=== PATIENT | female | born 1945 | race Caucasian/White ===

== ENCOUNTER 2019-11-17 15:19 | Emergency (ER) | payer MEDICARE ==
[2019-11-17] MEDS ORDERED: Alum Hydrox/Mag Hydrox/Simeth 15 ML, Lidocaine 2% 15 ML PO ONE ×2 (16:01)
--- NOTE | 2019-11-17 16:07 | EDM.PDOC ---
ED HPI GENERAL MEDICAL PROBLEM - General Chief Complaint: Chest Pain Stated Complaint: CHEST PAIN, SOB Time Seen by Provider: 11/17/19 15:50 Source of Information: Reports: Patient, RN History Limitations: Reports: Other (no old records) - History of Present Illness INITIAL COMMENTS - FREE TEXT/NARRATIVE: 74 yo female here with epigastric pain that began while walking around a local business. Is visiting her brother from [place], [place]. Has no SOB, nausea or diaphoresis. Has a pHx of Mir's esophagus. No melena or hematochezia. No vomiting. Ate bread and tomato soup for lunch. Has already had her gallbladder out. Swallowing does not change her sx's. 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 (see below) (none) Chest Pain Score (Numeric/FACES): 6 - Related Data Allergies Allergy/AdvReac Type Severity Reaction Status Date / Time clindamycin Allergy Rash Verified 11/17/19 15:40 Penicillins Allergy Other Verified 11/17/19 15:40 Home Meds: Home Meds Cyclobenzaprine [Flexeril] 0.5 tab PO BEDTIME 11/17/19 [History] Famotidine 1 tab PO BEDTIME 11/17/19 [History] Ferrous Sulfate 1 tab PO TID 11/17/19 [History] Omeprazole 1 tab PO DAILY 11/17/19 [History] Ranitidine HCl [Ranitidine] 1 tab PO BID 11/17/19 [History] Sucralfate [Carafate] 1 dose PO QID 11/17/19 [History] amLODIPine [Norvasc] 1 tab PO DAILY 11/17/19 [History] ondansetron HCL [Ondansetron HCl] 1 tab PO TID PRN 11/17/19 [History] oxyCODONE HCl/Acetaminophen [Oxycodone-Acetaminophen 5-325] 1 - 2 tab PO Q6HR PRN 11/17/19 [History] Social & Family History - Tobacco Use Smoking Status *Q: Never Smoker - Caffeine Use Caffeine Use: Reports: Coffee - Recreational Drug Use Recreational Drug Use: No ED ROS GENERAL - Review of Systems Review Of Systems: See Below Constitutional: Reports: No Symptoms HEENT: Reports: No Symptoms Respiratory: Reports: No Symptoms Cardiovascular: Reports: No Symptoms GI/Abdominal: Reports: Abdominal Pain (upper). Denies: Black Stool, Bloody Stool, Constipation, Diarrhea, Decreased Appetite, Distension, Flatus, Hematemesis, Melena, Nausea, Vomiting : Reports: No Symptoms Musculoskeletal: Reports: No Symptoms Skin: Reports: No Symptoms Neurological: Reports: No Symptoms Psychiatric: Reports: No Symptoms ED EXAM, GI/ABD - Physical Exam Exam: See Below Exam Limited By: No Limitations General Appearance: Alert, WD/WN, No Apparent Distress, Obese Eyes: Bilateral: Normal Appearance Ears: Normal External Exam, Normal Canal, Hearing Grossly Normal Nose: Normal Inspection, No Blood Throat/Mouth: Normal Inspection, Normal Lips, Normal Oropharynx, Normal Voice, No Airway Compromise Head: Atraumatic, Normocephalic Neck: Normal Inspection Respiratory/Chest: No Respiratory Distress, Lungs Clear, Normal Breath Sounds, No Accessory Muscle Use Cardiovascular: Regular Rate, Rhythm, No Edema GI/Abdominal Exam: Normal Bowel Sounds, Soft, No Distention, Tender ( epigastrium only). No: Non-Tender, Distended, Guarding, Rigid, Rebound Back Exam: Normal Inspection. No: CVA Tenderness (R), CVA Tenderness (L) Extremities: Normal Inspection, Normal Range of Motion, Non-Tender, No Pedal Edema Neurological: Alert, Oriented, CN II-XII Intact, Normal Cognition, No Motor/ Sensory Deficits Psychiatric: Normal Affect, Normal Mood Skin Exam: Warm, Dry, Intact, Normal Color, No Rash EKG INTERPRETATION EKG Date: 11/17/19 Time: 15:30 Rhythm: NSR Rate (Beats/Min): 73 [place]: Normal P-Wave: Present QRS: Normal ST-T: Normal QT: Normal Comparison: NA - No Prior EKG Course - Vital Signs Last Recorded V/S: Last Vital Signs Temp 36.0 C L 11/17/19 15:40 Pulse 68 11/17/19 16:38 Resp 16 11/17/19 16:38 BP 165/84 H 11/17/19 16:38 Pulse Ox 99 11/17/19 16:38 - Orders/Labs/Meds Orders: Active Orders 24 hr Category Date Time Status Cardiac Monitoring [RC] .As Directed Care 11/17/19 15:35 Active EKG Documentation Completion [RC] ASDIRECTED Care 11/17/19 15:35 Active EKG 12 Lead [EK] Routine Ther 11/17/19 15:35 Ordered Labs: Laboratory Tests 11/17/19 11/17/19 Range/Units 16:22 16:22 WBC 6.5 (4.5-11.0) K/uL RBC 4.60 (3.30-5.50) M/uL Hgb 11.1 L (12.0-15.0) g/dL Hct 37.5 (36.0-48.0) % MCV 82 (80-98) fL MCH 24 L (27-31) pg MCHC 30 L (32-36) % Plt Count 269 (150-400) K/uL Troponin I < 0.017 (0.000-0.056) ng/mL Lipase 273 (73-393) U/L Meds: Medications Discontinued Medications Generic Name Dose Route Start Last Admin Trade Name Freq PRN Reason Stop Dose Admin Al Hydroxide/Mg Hydroxide 15 0 ml 11/17/19 16:01 11/17/19 16:08 ml/ Lidocaine HCl 15 ml PO 11/17/19 16:02 30 ml ONETIME ONE Administration Ondansetron HCl 4 mg 11/17/19 16:19 11/17/19 16:38 Zofran Odt PO 11/17/19 16:20 4 mg ONETIME ONE Administration Oxycodone/Acetaminophen 1 tab 11/17/19 16:19 11/17/19 16:37 Percocet 325-5 Mg PO 11/17/19 16:20 1 tab ONETIME STA Administration - Re-Assessments/Exams Free Text/Narrative Re-Assessment/Exam: 11/17/19 17:02 Feeling better after Percocet x 1 and Zofran. Departure - Departure Time of Disposition: 17:02 Disposition: Home, Self-Care 01 Condition: Fair Clinical Impression: Gastritis Qualifiers: Gastritis type: unspecified gastritis Chronicity: acute Gastritis bleeding: without bleeding Qualified Code(s): K29.00 - Acute gastritis without bleeding - Discharge Information *PRESCRIPTION DRUG MONITORING PROGRAM REVIEWED*: No *COPY OF PRESCRIPTION DRUG MONITORING REPORT IN PATIENT [place]: No Referrals: PCP,None [Primary Care Provider] - Forms: ED Department Discharge Additional Instructions: Continue your current medications. Use Zofran as needed for nausea control. Use Percocet as needed for pain control. Recheck as needed. Sepsis Event Note - Focused Exam Vital Signs: Vital Signs Temp Pulse Resp BP Pulse Ox 11/17/19 16:38 68 16 165/84 H 99 11/17/19 16:13 68 18 159/60 H 98 11/17/19 15:40 36.0 C L 82 18 157/64 H 96 Date Exam was Performed: 11/17/19 Time Exam was Performed: 17:01 - My Orders Last 24 Hours: My Active Orders 11/17/19 15:35 Cardiac Monitoring [RC] .As Directed EKG Documentation Completion [RC] ASDIRECTED EKG 12 Lead [EK] Routine - Assessment/Plan Last 24 Hours: My Active Orders 11/17/19 15:35 Cardiac Monitoring [RC] .As Directed EKG Documentation Completion [RC] ASDIRECTED EKG 12 Lead [EK] Routine
[2019-11-17] MEDS ORDERED: Ondansetron 4 MG Tab.DIS PO ONE (16:19)
[2019-11-17] MEDS ORDERED: Acetaminophen/oxyCODONE 325-5 MG Tab PO STA (16:19)
== END 2019-11-17 17:44 | disposition home or self-care (01) ==
LOC: JP.ED 15:19
DX: K29.00 Acute gastritis without bleeding (principal); Z88.1 Allergy status to other antibiotic agents; Z88.0 Allergy status to penicillin; Z79.899 Other long term (current) drug therapy
CPT/HCPCS: 36415; 83690; 84484; 85027; 93005; 99284; A9270; 93010

== ENCOUNTER 2021-01-22 12:54 | Emergency (ER) | payer MEDICARE ==
--- NOTE | 2021-01-22 13:39 | EDM.PDOC ---
ED HPI GENERAL MEDICAL PROBLEM - General Chief Complaint: Allergic Reaction Stated Complaint: BEE STING, ALLERGIC Time Seen by Provider: 01/22/21 13:25 Source of Information: Reports: Patient, RN History Limitations: Reports: No Limitations - History of Present Illness Onset: Today, Sudden Onset Date: 01/22/21 Onset Time: 12:30 Duration: Constant Location: Reports: Lower Extremity, Right Quality: Reports: Burning Severity: Moderate Improves with: Reports: Other (Patient took Benadryl after she was bitten prior to arrival to the ER.) Worsens with: Reports: None Context: Reports: Trauma (Bee sting) Associated Symptoms: Denies: Confusion, Chest Pain, Cough, Diaphoresis, Fever/Chills, Headaches, Shortness of Breath 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 Medication(s) (Benadryl) Right Lower Posterior Leg Pain Score (Numeric/FACES): 4 - Related Data Allergies Allergy/AdvReac Type Severity Reaction Status Date / Time clindamycin Allergy Rash Verified 11/17/19 15:40 Penicillins Allergy Other Verified 11/17/19 15:40 Home Meds: Home Meds Cyclobenzaprine [Flexeril] 0.5 tab PO BEDTIME 11/17/19 [History] Ferrous Sulfate 1 tab PO TID 11/17/19 [History] Omeprazole 80 tab PO DAILY 11/17/19 [History] Ranitidine HCl [Ranitidine] 1 tab PO BID 11/17/19 [History] Sucralfate [Carafate] 1 dose PO QID 11/17/19 [History] amLODIPine [Norvasc] 1 tab PO DAILY 11/17/19 [History] EPINEPHrine [Epipen 2-David] 0.3 mg IJ ASDIRECTED #2 auto.injct 01/22/21 [Rx] EPINEPHrine [Epipen] 0.3 mg IM ASDIRECTED PRN #2 pen 01/22/21 [Rx] Past Medical History Cardiovascular History: Reports: Hypertension Respiratory History: Reports: Asthma, Other (See Below) Other Respiratory History: fibroids and pneumonia 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: Endocrine/Metabolic History: Reports: Hypoparathyroidism Hematologic History: Reports: Anemia, B12 Deficiency Oncologic (Cancer) History: Reports: Squamous Cell Carcinoma - Infectious Disease History Infectious Disease History: Reports: Chicken Pox, Measles, Mumps, Shingles - Past Surgical History GI Surgical History: Reports: Bariatric Procedure, Cholecystectomy, Efe Fundoplication Female Surgical History: Reports: Hysterectomy Musculoskeletal Surgical History: Reports: Knee Replacement, Other (See Below) Other Musculoskeletal Surgeries/Procedures:: rotator cuff torn Social & Family History - Tobacco Use Tobacco Use Status *Q: Never Tobacco User - Caffeine Use Caffeine Use: Reports: Coffee, Soda, Tea - Recreational Drug Use Recreational Drug Use: No ED ROS ALLERGIC REACTION - Review of Systems Review Of Systems: See Below Constitutional: Denies: Diaphoresis HEENT: Reports: No Symptoms Respiratory: Reports: No Symptoms Cardiovascular: Reports: No Symptoms GI/Abdominal: Reports: No Symptoms Musculoskeletal: Reports: Muscle Pain, Other (Swelling right calf) Skin: Reports: Erythema, Lesions (Bee sting with stinger removed on right calf measuring 5 cm around) Neurological: Reports: No Symptoms Psychiatric: Reports: No Symptoms Hematologic/Lymphatic: Reports: No Symptoms Immunologic: Reports: Environmental Allergy ED EXAM GENERAL NO PERIP PULSE - Physical Exam Exam: See Below Exam Limited By: No Limitations General Appearance: Alert, WD/WN, No Apparent Distress Respiratory/Chest: No Respiratory Distress, Lungs Clear, Normal Breath Sounds Cardiovascular: Normal Peripheral Pulses, Regular Rate, Rhythm, No Edema Extremities: Leg Pain, Increased Warmth (At be staying site) Neurological: Alert, Oriented, CN II-XII Intact, Normal Cognition Psychiatric: Normal Affect, Normal Mood Skin Exam: Warm, Dry, Erythema, Wound/Incision (5 cm round area of inflammation redness and warmth, this is not grown in size since patient arrived) Lymphatic: No Adenopathy Course - Vital Signs Text/Narrative:: Signs are stable. Sats are 98% blood pressure and pulse are within defined limits. Patient feels well after taking Benadryl. She is denying shortness of breath or diaphoresis. No visible evidence including hives from bee sting. Patient is without a EpiPen and would like this filled. Last Recorded V/S: Last Vital Signs Temp 37.1 C 01/22/21 13:20 Pulse 72 01/22/21 13:20 Resp 18 01/22/21 13:20 BP 169/52 H 01/22/21 13:20 Pulse Ox 94 L 01/22/21 13:20 - Re-Assessments/Exams Free Text/Narrative Re-Assessment/Exam: 01/22/21 13:43 Patient will utilize Benadryl in 4 to 6 hours if redness or warmth remains. Patient will return to ER if she develops shortness of breath. 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 Departure - Departure Time of Disposition: 14:05 Disposition: Home, Self-Care 01 Condition: Good Clinical Impression: Bee sting - Discharge Information Prescriptions: EPINEPHrine [Epipen] 0.3 mg IM ASDIRECTED PRN #2 pen PRN Reason: bee sting allergy EPINEPHrine [Epipen 2-David] 0.3 mg IJ ASDIRECTED #2 auto.injct Instructions: Allergies, Adult, Bee, Wasp, or Hornet Sting, Adult Referrals: PCP,None [Primary Care Provider] - Forms: ED Department Discharge Additional Instructions: Fill EpiPen and carry on person due to increased risk with next bee sting for additional reaction Sepsis Event Note (ED) - Evaluation Sepsis Screening Result: No Definite Risk - Focused Exam Vital Signs: Vital Signs Temp Pulse Resp BP Pulse Ox 01/22/21 13:20 37.1 C 72 18 169/52 H 94 L 01/22/21 13:13 37.1 C 72 18 169/52 H 94 L - Problem List Review Problem List Initiated/Reviewed/Updated: Yes - Assessment/Plan Assessment:: Bee sting with bee sting allergy Plan: 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 She will have this on her person in the event of an additional bee sting. Patient to avoid bees in areas that have been used. Patient to follow-up with primary care provider. Patient return to ER if any difficulty breathing, hives, or noted diaphoresis.
== END 2021-01-22 14:06 | disposition home or self-care (01) ==
LOC: JP.ED 12:54
DX: T63.441A Toxic effect of venom of bees, accidental (unintentional), initial encounter (principal); I10 Essential (primary) hypertension; J45.909 Unspecified asthma, uncomplicated; D64.9 Anemia, unspecified; Z88.1 Allergy status to other antibiotic agents; Z88.0 Allergy status to penicillin; Z79.899 Other long term (current) drug therapy
CPT/HCPCS: 99282